=== PATIENT | female | born 1965 | race Caucasian/White ===

== ENCOUNTER 2024-03-31 12:33 | Emergency (ER) | payer OTHER, SELFPAY ==
--- NOTE | ~2024-03-31 | XR_ITS ---
EXAMINATION: XR CHEST CLINICAL INFORMATION: Chest pain COMPARISON: None available. TECHNIQUE: 2 views of the chest were obtained. FINDINGS: No significant abnormality is noted involving the heart, lungs, mediastinum or bony thorax surgical clips are seen in the right axilla. XR/XR chest 2V IMPRESSION: No acute cardiopulmonary disease.
--- NOTE | 2024-03-31 12:35 | ECG_ITS ---
Test Reason : CHEST PAIN Blood Pressure : / mmHG Vent. Rate : 055 BPM Atrial Rate : 055 BPM P-R Int : 144 ms QRS Dur : 094 ms QT Int : 434 ms P-R-T Axes : 040 041 023 degrees QTc Int : 415 ms Sinus bradycardia Possible Left atrial enlargement RSR' or QR pattern in V1 suggests right ventricular conduction delay Borderline ECG No previous ECGs available Referred By: Claudia Burns Electronically Signed By:JAD LOYD MD
[2024-03-31 12:49] VITALS: BP 139/72; PULSE 55; RESP 19; TEMP 36.6; O2SAT 98; BMI 35.0
--- NOTE | 2024-03-31 12:49 | ED.CHESTPAIN ---
HPI - Chest Pain General Chief Complaint: Chest Pain Stated Complaint: chest pain Time Seen by Provider: 03/31/24 13:24 Source: patient Mode of arrival: ambulatory Limitations: no limitations History of Present Illness ED Provider: Dr. Benigno Coley HPI narrative: 59-year-old female otherwise healthy presents emergency department complaining of chest pain. She states last approximately 10 seconds and subsides. She does have history of acid reflux she denies any falls or injuries denies fevers or chills states her mother did have heart disease at a young age. She has never had this problem before she was at work had something to eat and then had burning epigastric versus lower chest pain Related Data Allergies Allergy/AdvReac Type Severity Reaction Status Date / Time No Known Allergies Allergy Verified 03/31/24 12:50 Review of Systems Review of Systems: Review of systems: General: Patient denies any fever chills recent illness or falls Musculoskeletal: Denies back pain or body aches or other injuries HEENT: denies headache, runny nose, ear pain Respiratory: denies shortness of breath, cough Cardiovascular: chest pain no palpitations : denies dysuria, frequency Abdomen: no nausea vomiting denies abdominal pain Extremities: no swelling, no pain Skin: no diaphoresis Yes all other systems are reviewed and are negative PMFSH Social History Social History Smoked in Last 30 Days: No Use of substances other than those prescribed or required for medical reasons: No Advance Directives: No Advance Directives Information Provided: Yes Physical Exam Vital Signs: Vital Signs: Last Vital Signs Temp 97.6 F 03/31/24 13:35 Pulse 50 03/31/24 13:35 Resp 18 03/31/24 13:35 BP 137/66 03/31/24 13:35 Pulse Ox 97 03/31/24 13:35 O2 Del Method Room Air 03/31/24 13:35 BMI result Body Mass Index 35.0 General: Well-appearing well-nourished in no signs of distress HEENT: Normocephalic atraumatic Neck: No signs of JVD, no masses no tenderness or lymphadenopathy Cardiovascular: Regular rate and rhythm Respiratory: Clear to auscultation bilaterally Abdomen: Soft nontender no masses Extremities: Normal pedal pulses no signs of edema Skin: Dry warm no rashes Back: No tenderness full ROM Course Course Course Narrative: This is a Rapid Medical Examination (RME) performed by Cuong Burns PA-C in triage. Full HPI, ROS, assessment and treatment plan per primary provider in the Main ED. 59 yo female here for eval of subternal burning chest pain that began around 1030 this morning after returning to work from a scheduled break. reports 4 episodes lasting approximately 10 seconds. she is asymptomatic right now. no hx of GERD. reports mom had AR at 42 yo. hx of rheumatic fever w/ heart murmur as a child. denies recent travel or long car rides. well appearing. no reproducible chest wall tenderness. rrr. lungs cta. no calf tenderness. Plan: labs, trop, ekg, cxr Reevaluation(s) Reevaluation #1: 1439 patient remains asymptomatic looks well I do feel comfortable discharging the patient home she is okay with plan Medical Decision Making Medical Decision Making MDM Narrative: I do feel like this sounds more like acid reflux symptoms started right after she was eating. I will treat the patient with Maalox Pepcid as well as aspirin in case this is ACS as I wait for labs Differential Diagnosis Differential Diagnoses: The differential diagnosis associated with the presentation includes ACS as reflux pneumonia gastritis Admission/Observation Consideration of admission/observation: Escalation of care including admission/observation considered Lab Data 03/31/24 13:04 03/31/24 13:04 Labs: Lab Results 03/31/24 Range/Units 13:04 WBC 5.7 (4.8-10.8) X10*3/uL RBC 4.86 (4.20-5.50) X10*6/uL Hgb 14.5 (12.0-16.0) g/dl Hct 43.3 (37.0-47.0) % MCV 89.1 (80.0-98.0) fL MCH 29.8 (27.0-33.0) pg MCHC 33.5 (31.0-35.0) g/dl RDW 12.6 (11.0-16.0) % Plt Count 287 (160-400) X10*3/uL MPV 8.9 L (9.4-12.3) fL Immature Gran % (Auto) 0.2 (0.0-0.4) % Neut % (Auto) 54.7 (45-73) % Lymph % (Auto) 32.4 (20-40) % [place] % (Auto) 8.3 (2-11) % Eos % (Auto) 2.8 (0-4) % Baso % (Auto) 1.6 (0-2) % Lymph # (Auto) 1.8 (1.2-4.9) X10*3/uL [place] # (Auto) 0.5 (0.1-1.2) X10*3/uL Eos # (Auto) 0.2 (0.0-0.4) X10*3/uL Baso # (Auto) 0.1 (0.0-0.2) X10*3/uL Abs Immat Gran (auto) 0.01 (0.00-0.03) X10*3/uL Absolute Neuts (auto) 3.1 (2.0-8.3) x10*3/uL Absolute Nucleated RBC 0.000 (0.0-0.012) X10*3/uL Nucleated RBC % (auto) 0.0 (0.0-0.2) /100WBC PT 10.9 L (11.1-13.3) SEC INR 0.9 (0.9-1.1) Sodium 142 (135-145) mmol/L Potassium 4.0 (3.3-5.1) mmol/L Chloride 105 (96-108) mmol/L Carbon Dioxide 32 H (22-29) mmol/L Anion Gap 9 L (12-20) BUN 16 (9-16) mg/dL Creatinine 0.67 (0.5-1.4) mg/dL Estim Creat Clear Calc 88.8 Estimated GFR > 60 Random Glucose 86 (60-115) mg/dL Calcium 9.9 (8.4-10.2) mg/dL Magnesium 2.2 (1.6-2.6) mg/dL Total Bilirubin 0.4 (0.0-1.0) mg/dL AST 21 (5-31) U/L ALT 14 (0-31) U/L Alkaline Phosphatase 60 (39-117) U/L Troponin I High Sens < 2.7 (<3.5-17.0) ng/L Total Protein 7.4 (6.5-8.0) g/dL Albumin 4.4 (3.5-5.0) g/dL Lipase 29 (8-78) U/L Scores Heart Score History: -0- slightly suspicious ECG: -0- normal Age: -0- < or = 45 Risk factory: -1- 1 or 2 risk factors Troponin: -0- < or = normal limit Score: 1 Risk: 1.7% Discharge Plan Discharge Clinical Impression: Chest pain Patient Disposition: Home, Self-Care Instructions: Chest Pain (DC) Additional Instructions: You seen in emergency department for chest pain. You underwent x-ray and labs which were all unremarkable. If you have worsening pain or any other concerns please return to emergency department Print Language: Macedonian
[2024-03-31 13:11] LABS: MANUAL DIFF FLAG NO
[2024-03-31 13:12] LABS: Basophils Absolute Auto 0.1 X10*3/uL (0.0-0.2); Basophils Percent Auto 1.6 % (0-2); Eosinophils Absolute Auto 0.2 X10*3/uL (0.0-0.4); Eosinophils Percent Auto 2.8 % (0-4); Hematocrit 43.3 % (37.0-47.0); Hemoglobin 14.5 g/dl (12.0-16.0); Imm Gran Abs Auto 0.01 X10*3/uL (0.00-0.03); Imm Gran Pct Auto 0.2 % (0.0-0.4); Lymphocytes Absolute Auto 1.8 X10*3/uL (1.2-4.9); Lymphocytes Percent Auto 32.4 % (20-40); Mean Corpuscular HGB Conc 33.5 g/dl (31.0-35.0); Mean Corpuscular Hemoglobin 29.8 pg (27.0-33.0); Mean Corpuscular Volume 89.1 fL (80.0-98.0); Mean Platelet Volume 8.9 fL (9.4-12.3); Monocytes Absolute Auto 0.5 X10*3/uL (0.1-1.2); Monocytes Percent Auto 8.3 % (2-11); Neutrophils Absolute Auto 3.1 x10*3/uL (2.0-8.3); Neutrophils Percent Auto 54.7 % (45-73); Platelet Count 287 X10*3/uL (160-400); Red Blood Count 4.86 X10*6/uL (4.20-5.50); Red Cell Distribution Width 12.6 % (11.0-16.0); White Blood Count 5.7 X10*3/uL (4.8-10.8)
[2024-03-31 13:17] LABS: INTERNATIONAL NORM RATIO 0.9 (0.9-1.1); Prothrombin Time 10.9 SEC (11.1-13.3)
[2024-03-31 13:26] LABS: Alanine Aminotransferase 14 U/L (0-31); Albumin Level 4.4 g/dL (3.5-5.0); Alkaline Phosphatase 60 U/L (39-117); Anion Gap 9 (12-20); Aspartate Amino Transferase 21 U/L (5-31); Bilirubin Total 0.4 mg/dL (0.0-1.0); Blood Urea Nitrogen 16 mg/dL (9-16); Calcium 9.9 mg/dL (8.4-10.2); Carbon Dioxide 32 mmol/L (22-29); Chloride 105 mmol/L (96-108); Creatinine Clr Calc Pharmacy 88.8; Estimated Glomerular Filt Rate > 60; Glucose Random 86 mg/dL (60-115); Lipase 29 U/L (8-78); Magnesium 2.2 mg/dL (1.6-2.6); Sodium 142 mmol/L (135-145); Total Protein 7.4 g/dL (6.5-8.0)
[2024-03-31 13:35] VITALS: BP 137/66; PULSE 50; RESP 18; TEMP 36.4; O2SAT 97
[2024-03-31 13:38] LABS: Troponin-I High Sensitivity < 2.7 ng/L (<3.5-17.0)
[2024-03-31] MEDS: Magnesium Hydrox/Alum Hydrox 30 ML ORAL.SUSP PO (14:35)
[2024-03-31] MEDS: Famotidine 20 MG TABLET PO (14:35)
[2024-03-31] MEDS: Aspirin 81 MG TAB.CHEW 324 MG PO (14:35)
[2024-03-31 15:54] VITALS: BP 147/78; PULSE 48; RESP 20; TEMP -17.7; TEMP 0; O2SAT 98
== END 2024-03-31 15:55 | disposition home or self-care (01) ==
PROVIDERS: Physician Assistant Medical; Emergency Provider Student in an Organized Health Care Education/Training Program; PCP Nurse Practitioner Family
DX: R07.89 Other chest pain (principal); Z79.899 Other long term (current) drug therapy
CPT/HCPCS: 36415; 71046; 80053; 83690; 83735; 84484; 85025; 85610; 93005; 99283; 99285

== ENCOUNTER → 2024-03-31 12:35 | Outpatient (BNV) | payer OTHER, SELFPAY | PROVIDERS: Emergency Provider Student in an Organized Health Care Education/Training Program; PCP Nurse Practitioner Family; Visit Provider Internal Medicine Cardiovascular Disease | DX: R07.9 Chest pain, unspecified (principal) | CPT/HCPCS: 93010 ==

== ENCOUNTER 2025-06-28 20:15 | Emergency (ER) | payer OTHER, SELFPAY ==
[2025-06-28 20:19] VITALS: BP 141/80; PULSE 74; RESP 20; TEMP 36.6; O2SAT 99; BMI 37.3
[2025-06-28 23:02] VITALS: BP 141/80; PULSE 72; RESP 18; TEMP 36.6; O2SAT 96
--- NOTE | 2025-06-28 23:57 | ED.WOUNDLAC ---
HPI - Wound/Laceration General Chief Complaint: Wound/Laceration Stated Complaint: infection in finger Time Seen by Provider: 06/28/25 22:56 Source: patient Mode of arrival: ambulatory Limitations: no limitations History of Present Illness ED Provider: Dr. Sandy Salvador HPI narrative: Patient comes to the emergency room complaining of left index finger pain swelling and pus accumulation. Patient states that it started out as a hang nail around 04:00 today, and then her finger has gradually been getting more swollen throughout the day and very painful, denies fever or chills. Related Data Previous Rx's ?Medication ?Instructions ?Recorded cephalexin 500 mg capsule 500 mg PO BID #20 caps 06/28/25 doxycycline hyclate 100 mg capsule 100 mg PO BID #20 caps 06/28/25 Allergies Allergy/AdvReac Type Severity Reaction Status Date / Time No Known Allergies Allergy Verified 06/28/25 20:21 Review of Systems Review of Systems: Constitutional : No Weight loss, No Fever, No Chills, No Night Sweats, No Fatigue, No Malaise ENT/Mouth : No Hearing loss, No Ear Pain, No Nasal Congestion, No Sinus Pain, No Hoarseness, No sore throat, No Rhinorrhea, No Swallowing Difficulty Eyes: No Eye Pain, No Swelling, No Redness, No Foreign Body, No Discharge, No Vision Changes Cardiovascular : No Chest Pain, No SOB, No Dyspnea on Exertion, No Orthopnea, No Edema, No Palpitations Respiratory : No Cough, No Sputum, No Wheezing, No Smoke Exposure, No Dyspnea Gastrointestinal : No Nausea, No Vomiting, No Diarrhea, No Constipation, No abdominal Pain, No Hematochezia, No Melena Genitourinary : no irregular bleeding, No Dysuria, No Urinary Frequency, No Hematuria, No Urinary Incontinence, No Urgency, No Flank Pain, No Urinary Flow Changes, No Hesitancy Musculoskeletal : No joint pain, No Myalgias, No Joint Swelling Skin : Complaining of erythema, pain and pocket of pus just before the fingernails starts Neuro : No Weakness, No Numbness, No Paresthesias, No Loss of Consciousness, No Dizziness, No Headache Psych : No Anxiety/Panic, No Depression, No SI/HI/AH/VH, No Social Issues, Heme/Lymph: No Bruising, No Bleeding,No Lymphadenopathy Endocrine : No Polyuria, No Polydipsia, No Temperature Intolerance PMFSH Social History Social History Smoked in Last 30 Days: No Use of substances other than those prescribed or required for medical reasons: No Advance Directives: No Advance Directives Information Provided: No Do you have a plan to hurt others: No Plan Patient : No Physical Exam Exam: Exam: Appearance: Alert. Oriented X3. No acute distress. Eyes: Pupils equal, round and reactive to light. ENT: Pharynx normal. Neck: Normal inspection. Neck supple. No lymph nodes noted. No crepitus CVS: Normal heart rate and rhythm. Pulses normal. Normal S1 and S2 Respiratory: No respiratory distress. Breath sounds normal. No Wheezing. No rales Abdomen: Soft and nontender. No rigidity. No distention. Skin: Skin warm and dry. Normal skin color. Normal skin turgor. see extremity below Extremities: No lower extremity edema. No Lacerations. No Rash. In patient's left hand, patient has significant swelling throughout the index finger, there is a large pocket of pus just before the nail bed, ecchymosis. Pain to palpation throughout the finger. Patient is unable to flex the index finger. However, patient states that she has trouble flexing all of her fingers due to arthritis Neuro: Oriented X 3. No motor deficit. No sensory deficit. Moving all extremities. No slurred speech. CN 2 through 12 grossly intact Psych: calm, cooperative, normal affect Vital Signs: Vital Signs: Last Vital Signs Temp 97.9 F 06/28/25 23:02 Pulse 72 06/28/25 23:02 Resp 18 06/28/25 23:02 BP 141/80 H 06/28/25 23:02 Pulse Ox 96 06/28/25 23:02 O2 Del Method Room Air 06/28/25 23:02 BMI result Body Mass Index 37.3 Course Course Course Narrative: patient comes in complaining of paronychia the got complicated by cellulitis, pus drainage. Medications Administered Discontinued Medications Generic Name Dose Route Start Last Admin Trade Name Frankq PRN Reason Stop Dose Admin Acetaminophen 975 mg 06/28/25 23:42 06/28/25 23:47 Acetaminophen 325 Mg Tablet PO 06/28/25 23:43 975 mg ONCE ONE Administration Cephalexin HCl 500 mg 06/28/25 23:38 06/28/25 23:46 Cephalexin 500 Mg Capsule PO 09/03/25 23:39 500 mg ONCE ONE Administration Doxycycline Monohydrate 100 mg 06/28/25 23:38 06/28/25 23:46 Doxycycline Monohydrate 100 Mg Capsule PO 06/28/25 23:39 100 mg ONCE ONE Administration Medical Decision Making Medical Decision Making [facility] Narrative: I discussed the physical exam with the patient. I am concerned that the patient's finger is significantly swollen and they erythema starting to go up the finger almost to the base of the index on the left hand. There is a large amount of pus in the pocket on the dorsal aspect of the finger. On palpation to the finger around the DIPs and PIPs, there is fluctuation. I discussed with the patient that I am concerned that patient may start to develop tenosynovitis. Patient declined blood work at this time, patient states that she has to be at work in 6 hours. Patient states that she can not miss work. I offered to the patient a work note. I discussed with the patient that at least we should drain it today. Patient is agreeable. Patient states that she is afraid of needles and would like to have it drained without lidocaine. A small 0.5 cm incision was made with an 11 scalpel just above the fingernail with a pus pocket is forming, a large amount of pus was drained. However, the remainder of the finger is erythematous and there is fluctuation to palpation throughout the entire finger. As mentioned above, I recommended further workup and even admission, IV antibiotics. Patient states that this time she will only take p.o. antibiotics I discussed with the patient that if the finger is not improving within the next few hours, or if she has any worsening symptoms, she needs to return to emergency room and plan for admission. I am concerned how rapidly them erythema has been spreading through her finger. I discussed with the patient that I do not think that she should be going home given how her finger looks. Patient decided to give it a chance with p.o. antibiotics and if needed she will come back. Differential Diagnosis Differential Diagnoses: The differential diagnosis associated with the presentation includes ( Cellulitis, abscess, tenosynovitis) Admission/Observation Consideration of admission/observation: Escalation of care including admission/observation considered ( I strongly considered admitting the patient, giving IV antibiotics, patient declined lab work in admission) Tests considered The following testing was considered but not selected: I considered getting a CT scan to rule out tenosynovitis. However, patient declined lab work and anything that would require needles. I offered a CT scan without contrast. However, patient declined as well Critical Care Time Critical Care Time Critical Care Time: Yes Total Critical Care Time: 35 Attestation: I have personally provided critical care time. Time includes review of lab data, radiology results, discussion with consultants, and monitoring for potential decompensation. Intervention performed as documented. Discharge Plan Discharge Clinical Impression: Paronychia of finger, Cellulitis Patient Disposition: Home, Self-Care Instructions: Paronychia (ED), Cellulitis (ED) Additional Instructions: if your finger is not get any better or if it gets worse, if you develop fever or chills, please return to the emergency room and it is likely that you may need to be admitted. Please follow-up with your primary care physician tomorrow. If you have any worsening or new symptoms, please return to the emergency room or call 911 Prescriptions: New cephalexin 500 mg capsule 500 mg PO BID Qty: 20 0RF doxycycline hyclate 100 mg capsule 100 mg PO BID Qty: 20 0RF Stand Alone Forms: Work/School Release Print Language: Mohawk
[2025-06-28 23:59] VITALS: BP 136/85; PULSE 65; RESP 16; O2SAT 96
[2025-06-29 00:05] VITALS: BP 136/85; PULSE 65; RESP 16; TEMP 36.7; O2SAT 96
== END 2025-06-29 00:07 | disposition home or self-care (01) ==
PROVIDERS: Emergency Provider Emergency Medicine; PCP Nurse Practitioner Family
DX: L03.012 Cellulitis of left finger (principal); R60.0 Localized edema
CPT/HCPCS: 10140; 99283; 99284

== ENCOUNTER 2025-07-23 11:40 | Emergency (ER) | payer OTHER, SELFPAY ==
[2025-07-23 12:28] VITALS: BP 115/67; PULSE 79; RESP 18; TEMP 36.2; O2SAT 94; BMI 35.6
--- NOTE | 2025-07-23 12:28 | ED_ITS ---
HPI - General Adult General Chief complaint: Skin/Abscess/Foreign Body Stated complaint: cellulitis not getting better with antibiotics Time Seen by Provider: 07/23/25 12:34 Source: patient Mode of arrival: ambulatory Limitations: no limitations History of Present Illness ED Provider: Ghazal Steele APRN HPI narrative: 60-year-old female with a history of hypertension hypothyroidism presents the ER with complaints of redness to the right thigh. Patient reports she was diagnosed with cellulitis on Thursday at urgent care and was started on cephalexin 500 mg twice daily. She has taken 5 doses. She does not feel the area is improving prompting her to come to the ER. She denies fevers, chills, body aches. She is fostering a cat and she believes the cat may have scratched her when it jumped on her lap. No bites. It is an indoor cat. Related Data Previous Rx's ?Medication ?Instructions ?Recorded cephalexin 500 mg capsule 500 mg PO BID #20 caps 06/28 doxycycline hyclate 100 mg capsule 100 mg PO BID #20 c aps 06/28/25 doxycycline monohydrate 100 mg 100 mg PO BID #14 caps 07/23/25 capsule Allergies Allergy/AdvReac Type Severity Reaction Status Date / Time No Known Allergies Allergy Verified 07/23/25 12:30 Review of Systems 2 Review of Systems: Yes all other systems are reviewed and are negative Constitutional: Constitutional: Reports no additional constitutional complaints, Denies body ache(s), Denies chills, Denies fever(s), Denies headache(s) and Denies weakness Eyes: Eyes: Reports no additional eye complaints and Denies change in vision ENT: Reports system reviewed and no additional complaints, except as documented, Denies dizziness, Denies headache(s), Denies nasal congestion, Denies nasal discharge and Denies neck pain Cardiovascular: Cardiovascular: Reports no additional cardiovascular complaints, Denies chest pain, Denies leg edema and Denies dyspnea Respiratory: Respiratory: Reports no additional respiratory complaints, Denies cough and Denies dyspnea Gastrointestinal: Gastrointestinal: Reports no additional gastrointestinal complaints, Denies abdominal pain, Denies diarrhea, Denies nausea and Denies vomiting Genitourinary: Genitourinary: Reports no additional female genitourinary complaints and Denies urinary incontinence Musculoskeletal: Musculoskeletal: Reports no additional musculoskeletal complaints, Denies back pain, Denies arthralgias, Denies joint swelling, Denies neck pain, Denies numbness and Denies tingling Integumentary/Breasts: Skin/Breast: Reports system reviewed and no additional complaints, except as docu, Denies swelling, Reports erythema and Denies rash Neurologic: Reports system reviewed and no additional complaints, except as documented, Denies Abnormal speech present, Denies dizziness, Denies headache(s), Denies numbness, Denies tingling and Denies weakness [facility] Past Medical History Attestation statement: The following information was validated with the patient. Source: old records reviewed and nursing notes reviewed Social History Social History Do you have a plan to hurt others: No Plan Physical Exam ED Vital Signs: Vital Signs - 24 hr 07/23/25 12:28 Temperature 97.1 F Pulse Rate 79 Respiratory Rate 18 Blood Pressure 115/67 Pulse Oximetry 94 Oxygen Delivery Method Room Air BMI result Body Mass Index 35.6 Const General: cooperative, healthy appearing, comfortable and no acute distress Orientation/consciousness: patient oriented x3 Limitations: no limitations HENWY Head: Yes normal to inspection Ears: hearing grossly normal bilaterally General nose exam: Normal external nose present Face and sinus: Yes normal facial exam Mouth: Normal oral and palatal mucosa present Throat: Yes posterior oropharynx normal Eyes General: appearance normal, both eyes and all related structures Pupils: Equal, round and reactive pupils present Neck Neck: Yes normal visual inspection Chest Chest palpation & inspection: normal inspection of the chest Resp Effort & Inspection: normal respiratory effort Auscultation: clear to auscultation bilaterally Cardio Rate: regular rate Rhythm: regular rhythm Peripheral pulses: Peripheral pulses 2+ throughout GI Inspection: Yes normal to inspection Palpation (GI): Soft to palpation and nontender Auscultation: normal bowel sounds Back/Spine/Pelvis Thoracic/Lumbar Spine: thoracic and lumbar spine normal to inspection Skin General skin exam: no rashes or lesions noted Neuro General: patient oriented x3, no focal motor deficits and normal sensation to monofilament Cranial nerves: Yes Equal, round and reactive pupils present Cognition (Neuro): normal cognition Speech: No Abnormal speech present Gait exam (Neuro): Normal gait present Motor exam (neuro): 5/5 motor strength present throughout Extrem Upper/lower leg/hip images: 2 1. There is an area of erythema. No swelling. No palpable abscess. The area is not circumferential. The compartments are soft and compressible. CMS is intact distally. It is within the marked area. 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 Placed on antibiotics on Thursday (cephalexin) Medical Decision Making Medical Decision Making MDM Narrative: 60-year-old female with a history of hypertension hypothyroidism presents the ER with complaints of redness to the right thigh. Patient reports she was diagnosed with cellulitis on Thursday at urgent care and was started on cephalexin 500 mg twice daily. She has taken 5 doses. She does not feel the area is improving prompting her to come to the ER. She denies fevers, chills, body aches. She is fostering a cat and she believes the cat may have scratched her when it jumped on her lap. No bites. It is an indoor cat. There is an area of erythema. No swelling. No palpable abscess. The area is not circumferential. The compartments are soft and compressible. CMS is intact distally. It is within the marked area. Appears to have some mild cellulitis. Will add additional antibiotic coverage. Reviewed worrisome signs and symptoms of when to return to the emergency room. Comfortable plan for discharge home. Differential Diagnosis Differential Diagnoses: The differential diagnosis associated with the presentation includes Cellulitis Low suspicion for compartment syndrome, necrotizing fasciitis, deeper space abscess Admission/Observation Consideration of admission/observation: Escalation of care including admission/observation considered Lab Data MDM Lab Attestation statement: I reviewed the patient's lab results. Prescription Management I considered prescription management with: Antibiotic Discharge Plan Discharge Clinical Impression: Cellulitis Patient Disposition: Home, Self-Care Instructions: Cellulitis (ED), Warm Compress or Soak (ED) Additional Instructions: Continue cephalexin Start doxycycline Use warm compresses Return for fevers or chills Follow-up with the primary care doctor for any continued symptoms Prescriptions: New doxycycline monohydrate 100 mg capsule 100 mg PO BID Qty: 14 0RF No Action cephalexin 500 mg capsule 500 mg PO BID Qty: 20 0RF doxycycline hyclate 100 mg capsule 100 mg PO BID Qty: 20 0RF Referrals: Bharati Palumbo NP [Primary Care Provider, Internal Medicine] Print Language: Sami
[2025-07-23 12:44] VITALS: BP 115/67; PULSE 79; RESP 18; TEMP 36.2; O2SAT 94
--- OUTSIDE RECORDS SUMMARY | 2025-07-23 12:49 | XMS_ITS | Encounter Summary ---
Author Organization [employer] Address [address] [place] [address] Care Team Providers Care X Ray Developer Name Role Phone Unavailable Primary Care Provider Unavailabl e Encounter Details Date Type Department Care Team (Latest Contact Info) Description 11/08/2018 Abstract [facility] CONVERSIONS Dental, Provider, DDS Social History Tobacco Use Types Packs/Day Years Used Date Smoking Tobacco: Never Assessed Comments Unknown Sex and Gender Information Value Date Recorded Sex Assigned at Female 08/25/2022 10:22 AM EDT Legal Sex Female 10:22 AM EDT Gender Identity Female 08/25/2022 10:22 AM EDT Sexual Orientation Straight 08/25/2022 10 :22 AM EDT documented as of this encounter Plan of Treatment Upcoming Encounters Date Type Department Care Team (Late st Contact Info) Description 09/13/2025 3:00 PM EST Office Visit [facility] [address] [place] [address] Vianey De Leon [address] [place], [place] [id number] documented as of this encounter Visit Diagnoses Not on filedocumented in this encounter
--- OUTSIDE RECORDS SUMMARY | 2025-07-23 12:49 | XMS_ITS | Clinical Summary ---
Author Organization [employer] Address [address] [facility] [address] [place] [address] Care Team Providers Care Parliamentary Counsel Name Role Phone Unavailable Primary Care Provider Unavailabl e Allergies No known active allergies Medications levothyroxine (Synthroid, Levoxyl) 100 MCG tablet TAKE 1 TAB BY MOUTH THURSDAY - THURSDAY. NONE Thursday02/09/2023 Active simvastatin (Zocor) 40 MG tablet Take 40 mg by mouth at bedtime. 02/08/2023 Active Social History Tobacco Use Types Packs/Day Years Used Date Smoking Tobacco: Never Smokeless Tobacco: Never Tobacco Cessation:Counseling Given: Not Answered Comments Unknown Sex and Gender Information Value Date Recorded Sex Assigned at Female 08/25/2022 10:22 AM EDT Legal Sex Female 10:22 AM EDT Gender Identity Female 08/25/2022 10:22 AM EDT Sexual Orientation Straight 08/25/2022 10 :22 AM EDT Last Filed Vital Signs Vital Sign Reading Time Taken Comments Blood Pressure 96/58 03/08/2025 3:12 PM EDT Pulse 64 03/08/2025 3:12 PM EDT Temperature - - Respiratory Rate - - Oxygen Saturation - - Inhaled Oxygen Concentration - - Weight - - Height - - Body Mass Index - - Plan of Treatment Upcoming Encounters Date Type Department Care Team (Late st Contact Info) Description 09/13/2025 3:00 PM EST Office Visit [facility] [address] [place] [address] [phone] Vianey De Leon [address] [place] [address] Health Maintenance Due Date Last Done Comments CT Colonography 1965 Colonoscopy 1965 Colorectal Cancer Screening 1965 Depression Screening 1965 FIT DNA/Cologuard 1965 FIT 1965 FOBT 1965 HIV Screening 1965 Lipid Panel 1965 SDOH Screening 1965 Sigmoidoscopy 1965 Disability Screening 1965 Alcohol/Substance Use Screening 1977 Hepatitis C Screening 1983 Pap Smear 1986 Cervical Cancer Screening 1995 HPV/Cotest 1995 Mammogram 2005 Pneumococcal Vaccine: 50+ Years (1 of 1 - PCV) 2015 Zoster Vaccines (1 of 2) 2015 Dental X-Ray: Full Mouth 06/05/2025 06/04/2022 COVID-19 Vaccine ( - season) 2025 Influenza Vaccine (#1) 2025 10/13/2011, 2009 Dental Oral Exam 09/09/2025 03/08/2025, 06/2024, 06/04/2022, Additional history exists Dental Prophylaxis 09/09/2025 03/08/2025, 1 10/31/2023, 02/02/2024, Additional history exists Tobacco Screening 03/08/2026 03/08/2025 Dental X-Ray: Bitewings 03/09/2026 03/08/20, 02/02/2024, 06/04/2022, Additional history exists DTaP/Tdap/Td Vaccines (2 - Td or Tdap) 06/05/2031 06/05/2021, 02/10/2001 RSV Patients and Patients Aged 60 years or older (1 - 1-dose 75+ series) 2040 HIB Vaccines Aged Out No longer eligi ble based on patient's age to complete this topic HPV Vaccines Aged Out No longer eligi ble based on patient's age to complete this topic Hepatitis A Vaccines Aged Out No long er eligible based on patient's age to complete this topic Hepatitis B Vaccines Aged Out No long er eligible based on patient's age to complete this topic IPV Vaccines Aged Out No longer eligi ble based on patient's age to complete this topic Meningococcal B Vaccine Aged Out No l onger eligible based on patient's age to complete this topic Meningococcal Vaccine Aged Out No narciso margot eligible based on patient's age to complete this topic RSV under 20 months Aged Out No longe r eligible based on patient's age to complete this topic Rotavirus Vaccines Aged Out No longer eligible based on patient's age to complete this topic Procedures Procedure Name Priority Date/Time Associated Diagnosis Comments PROPHYLAXIS - ADULT Routine 03/08/2025 3 :00 PM EDT BITEWINGS - 4 RADIOGRAPHIC IMAGES Routine 03/08/2025 3:00 PM EDT PERIODIC ORAL EVALUATION - ESTABLISHED PATIENT Routine 03/08/2025 3:00 PM EDT INTRAORAL - COMPLETE SERIES OF RADIOGRAPHIC IMAGES Routine 06/04/2022 12:00 AM EDT from Last 3 Months or Most Recently Relevant to Health Maintenance Insurance DENTAL - [facility] PARTIAL (MEDICAID)
--- OUTSIDE RECORDS SUMMARY | 2025-07-23 12:49 | XMS_ITS | Encounter Summary ---
Author Organization [employer] Address [address] [facility] [address] [place] [address] Care Team Providers Care User Experience Researcher Name Role Phone Unavailable Primary Care Provider Unavailabl e Encounter Details Date Type Department Care Team (Latest Contact Info) Description 11/10/2019 Abstract [facility] CONVERSIONS Dental, Provider, DDS Social History Tobacco [...] Description 09/13/2025 3:00 PM EST Office Visit [facility] [address] [place] [address] Vianey De Leon [address] [place], [place] [phone] documented as of this encounter Visit Diagnoses Not on filedocumented in this encounter
--- OUTSIDE RECORDS SUMMARY | 2025-07-23 12:49 | XMS_ITS | Encounter Summary ---
Author Organization [employer] Address [address] [facility] [address] [place] [address] Care Team Providers Care Wax Coating Machine Tender Name Role Phone Unavailable Primary Care Provider Unavailabl e Encounter Details Date Type Department Care Team (Latest Contact Info) Description 06/04/2022 Abstract [facility] CONVERSIONS Dental, Provider, DDS Social History [...] Upcoming Encounters Date Type Department Care Team ( Contact Info) Description 09/13/2025 3:00 PM EST Office Visit [facility] [address] [place], [place] [phone] Vianey De Leon [address] [place], [place] [phone] documented as of this encounter Visit Diagnoses Not on filedocumented in this encounter
== END 2025-07-23 12:52 | disposition home or self-care (01) ==
LOC: HO.ED 12:47
PROVIDERS: Emergency Provider Emergency Medicine; PCP Nurse Practitioner Family
DX: L03.115 Cellulitis of right lower limb (principal); I10 Essential (primary) hypertension
CPT/HCPCS: 99283